=== PATIENT | female | born 1950 | race African-American/Black ===

== ENCOUNTER 2019-09-27 11:42 | Inpatient (IN) | payer MEDICARE, MEDICAID ==
[~2019-09-27] VITALS: Ht 167.6 cm; Wt 98.6 kg
[2019-09-27] MEDS ORDERED: cloNIDine HCL 0.1 MG TAB PO ONE (13:00)
[2019-09-27 13:04] LABS: Basophils # (auto) 0 10 ^3/uL (0-0.2); Eosinophils # (auto) 0 10 ^3/uL (0-0.8); Lymphocytes # (auto) 2.1 10 ^3/uL (0.4-5.4); Red Blood Cells 4.76 10^6/uL (4.0-5.20); Red Cell Distribution Width 15.2 % (11.8-14.3); White Blood Cell 6.8 10^3/uL (4.4-10.8)
[2019-09-27 13:05] LABS: Basophils % (auto) 0.7 % (0.0-2.0); Eosinophils % (auto) 0.5 % (0.0-7.0); Hematocrit 40.1 % (36.0-46.0); Hemoglobin 12.8 g/dL (12.2-16.2); Mean Corpuscular Hemoglobin 26.8 pg (28.0-32.0); Mean Corpuscular Hgb Conc. 31.8 g/dL (32.0-36.0); Mean Corpuscular Volume 84.3 fL (80.0-100.0); Monocytes # (auto) 0.3 10 ^3/uL (0-1.3); Monocytes % (auto) 4.9 % (0.0-12.0); Neutrophils # (auto) 4.2 10 ^3/uL (1.6-8.6); Neutrophils % (auto) 62.9 % (37.0-80.0); Platelet Count (auto) 193 10^3/uL (140-450)
[2019-09-27 13:20] LABS: Albumin 3.5 g/dL (3.4-5.0); Calcium 8.8 mg/dL (8.5-10.1); Potassium 4.1 mmol/L (3.5-5.1)
[2019-09-27 13:24] LABS: Partial Thromboplastin Time 22.5 sec (23.64-32.05)
[2019-09-27 13:25] LABS: BUN/Creatinine Ratio 17.9; Bilirubin, Total 0.2 mg/dL (0.2-1.0); Total Protein 7.6 g/dL (6.4-8.2)
[2019-09-27] MEDS ORDERED: DOCUSATE SOD 100 MG CAP PO PRN (13:45)
[2019-09-27] MEDS ORDERED: ONDANSETRON HCL 4 MG/2 ML VIAL IV PRN (13:45)
[2019-09-27] MEDS ORDERED: LORazepam 0.5 MG TAB PO PRN (13:45)
[2019-09-27] MEDS ORDERED: FUROSEMIDE 40 MG/4 ML VIAL IV ONE (13:45)
[2019-09-27] MEDS ORDERED: ALUM & MAG HYDROX-SIMETH LIQ(MAALOX) 30 ML PO PRN (13:45)
[2019-09-27] MEDS ORDERED: hydrALAZINE HCL 20 MG/ML VL IV PRN (13:45)
[2019-09-27] MEDS ORDERED: NITROGLYCERIN 0.4 MG SL TAB SL PRN (13:45)
[2019-09-27] MEDS ORDERED: DEXTROSE (50%) 50ML SYRG IV PRN (13:45)
[2019-09-27] MEDS ORDERED: METOPROLOL SUCCINATE XL 50 MG TAB PO ONE (13:45)
[2019-09-27] MEDS ORDERED: MORPHINE SULF INJ 2 MG/ML SYRINGE 1ML IV PRN (13:45)
[2019-09-27 13:56] LABS: Urine Bacteria FEW /hpf (None Seen); Urine Blood Negative /uL (Negative); Urine Specific Gravity 1.022 (1.001-1.035); Urine WBC 5 /hpf (0 - 5)
[2019-09-27 14:15] LABS: Cholesterol 219 mg/dL (< 200); HDL Cholesterol 54 mg/dL (40-59); LDL Cholesterol 132 mg/dL (< 100); Triglycerides 214 mg/dL (< 150)
[2019-09-27 14:21] LABS: Alcohol, Urine < 3.0 mg/dL (0-5); Amphetamine Screen, Urine NEGATIVE (NEGATIVE); Barbiturate Scree,Urine NEGATIVE (NEGATIVE); Benzodiazephine Screen, Urine POSITIVE (NEGATIVE); Cannabinoid Screen, Urine NEGATIVE (NEGATIVE); Cocaine Screen, Urine NEGATIVE (NEGATIVE); Opiate Scree,Urine NEGATIVE (NEGATIVE); Phencyclidine Screen, Urine NEGATIVE (NEGATIVE)
[2019-09-27] MEDS ORDERED: MORPHINE SULF INJ 2 MG/ML SYRINGE 1ML ONE (14:24)
[2019-09-27] MEDS: SODIUM CHLORIDE 0.9% 1,000 ML IV SCH (14:48)
[2019-09-27] MEDS: MORPHINE SULF INJ 2 MG/ML SYRINGE 1ML IV PRN (14:49)
[2019-09-27] MEDS ORDERED: HYDROmorphone HCL 2 MG/ML VL IV ONE (15:45)
--- NOTE | 2019-09-27 16:08 | NUR ---
Admit to Unit Patient admitted to unit. No signs of distress noted at this time, respirations are even and unlabored. Patient refuses to turn for repositioning at this time. Will continue to monitor.
--- NOTE | 2019-09-27 16:11 | NUR ---
Patient Round Patient is currently AOx4. VS are as follows: RR 22, SpO2 89%-patient sat up and encouraged to deep breathe, will reassess, HR 98, Temperature 97.9, BP 151/65. Will continue to monitor.
[2019-09-27 16:55] VITALS: BP 151/65
[2019-09-27 17:00] VITALS: BP 151/65
--- NOTE | 2019-09-27 17:00 | NUR ---
Patient Rounds Patient is currently resting with eyes closed, respirations even and unlabored. Patient is easy to arouse but is sleepy. Per patient, morphine makes her sleepy. Safety precautions are in place. Will continue to monitor.
[2019-09-27] MEDS: ACCU-CHEK COMFORT CURVE STRIP VI SCH ×2 (17:27→22:22)
[2019-09-27] MEDS: FUROSEMIDE 40 MG/4 ML VIAL IV SCH (17:27)
[2019-09-27] MEDS: InsuLIN REG 1unit/0.01ml Soln (100units/ml) SC SCH ×2 (17:57→22:25)
[2019-09-27] MEDS ORDERED: PNEUMOCOCCAL VACC POLYS 25 MCG/0.5 ML VIAL IM ONE (18:00)
[2019-09-27] MEDS ORDERED: AMLO5TAB15 PO (18:38)
[2019-09-27] MEDS ORDERED: ASPI325T4 PO (18:38)
[2019-09-27] MEDS ORDERED: ALPR1TAB7 PO (18:38)
[2019-09-27] MEDS ORDERED: ATOR20TA50 PO (18:38)
[2019-09-27] MEDS ORDERED: ALPR2TAB6 PO (18:38)
[2019-09-27] MEDS ORDERED: CLON0.1T PO (18:38)
[2019-09-27] MEDS ORDERED: ENAL2.5T PO (18:39)
[2019-09-27] MEDS ORDERED: SUMA25TA2 PO (18:41)
[2019-09-27] MEDS ORDERED: MILN50TA PO (18:41)
[2019-09-27] MEDS ORDERED: LEVEMIR SC (18:41)
[2019-09-27] MEDS ORDERED: FURO40TA4 PO (18:41)
[2019-09-27] MEDS ORDERED: LACO200T PO (18:42)
[2019-09-27] MEDS ORDERED: SERT-274 PO (18:44)
[2019-09-27] MEDS ORDERED: OXYBPOW10 XX (18:44)
--- NOTE | 2019-09-27 19:00 | NUR ---
Opening Shift Note Assumed care of patient, awake and alert. No S/S of distress/SOB, patient complains of pain in her right hip where she fell. Instructed on POC and to call for assist PRN, will continue to monitor for changes Q1hr and PRN. Patient in lowest possible position with call light within reach.
[2019-09-27 20:00] VITALS: BP 150/82
[2019-09-27 22:00] VITALS: BP 150/82
[2019-09-27] MEDS ORDERED: levETIRAcetam 500 MG TAB PO SCH (22:00)
[2019-09-27] MEDS: ATORVASTATIN 20 MG TAB PO SCH (22:22)
--- NOTE | 2019-09-27 23:00 | NUR ---
IV insertion IV access obtained, via clean sterile technique by inserting a 22 gauge catheter on her right forearm after 2 attempts. IV secured properly. No trauma to site. Patient tolerated well. Patient still has EJ IV in place. Moved fluids to her right forearm due to the patient keeps putting her neck to her right side, causing an occlusion in the IV. Will continue to monitor.
[2019-09-27] MEDS ORDERED: CEFTRIAXONE SODIUM 2 GM in D5W 5% 50 ML IV ONE (23:30)
[2019-09-28] MEDS: MORPHINE SULF INJ 2 MG/ML SYRINGE 1ML IV PRN ×4 (00:13→21:24)
[2019-09-28 05:00] VITALS: BP 179/93
[2019-09-28] MEDS: FUROSEMIDE 40 MG/4 ML VIAL IV SCH ×2 (05:46→18:00)
[2019-09-28] MEDS: SODIUM CHLORIDE 0.9% 1,000 ML IV SCH ×2 (05:46→23:05)
[2019-09-28] MEDS: ACCU-CHEK COMFORT CURVE STRIP VI SCH ×4 (06:33→22:02)
[2019-09-28] MEDS: INSULIN LISPRO (HUMAN) 100 UNITS/ML ML SC SCH ×3 (06:34→18:00)
[2019-09-28] MEDS: InsuLIN REG 1unit/0.01ml Soln (100units/ml) SC SCH ×4 (06:34→22:06)
[2019-09-28 06:57] LABS: Basophils # (auto) 0 10 ^3/uL (0-0.2); Basophils % (auto) 0.2 % (0.0-2.0); Eosinophils # (auto) 0 10 ^3/uL (0-0.8); Eosinophils % (auto) 0.1 % (0.0-7.0); Hematocrit 40.4 % (36.0-46.0); Hemoglobin 13.1 g/dL (12.2-16.2); Lymphocytes # (auto) 2.1 10 ^3/uL (0.4-5.4); Lymphocytes % (auto) 23.5 % (10.0-50.0); Mean Corpuscular Hemoglobin 27.3 pg (28.0-32.0); Mean Corpuscular Hgb Conc. 32.4 g/dL (32.0-36.0); Mean Corpuscular Volume 84.4 fL (80.0-100.0); Monocytes # (auto) 0.6 10 ^3/uL (0-1.3); Monocytes % (auto) 7.3 % (0.0-12.0); Neutrophils # (auto) 6.1 10 ^3/uL (1.6-8.6); Neutrophils % (auto) 68.9 % (37.0-80.0); Platelet Count (auto) 198 10^3/uL (140-450); Red Blood Cells 4.78 10^6/uL (4.0-5.20); Red Cell Distribution Width 15.6 % (11.8-14.3); White Blood Cell 8.8 10^3/uL (4.4-10.8)
[2019-09-28 07:00] LABS: INR 1.01 (0.9-1.15); Partial Thromboplastin Time 24.5 sec (23.64-32.05); Potassium 3.9 mmol/L (3.5-5.1)
[2019-09-28 07:07] LABS: Albumin 3.5 g/dL (3.4-5.0); BUN/Creatinine Ratio 18.4; Bilirubin, Total 0.4 mg/dL (0.2-1.0); Calcium 8.6 mg/dL (8.5-10.1); Magnesium 1.9 mg/dL (1.6-2.6); Phosphorus 3.1 mg/dL (2.5-4.90); Total Protein 7.7 g/dL (6.4-8.2)
--- NOTE | 2019-09-28 07:24 | NUR ---
Closing note Patient asleep, recently given morphine for back pain. patient in the lowest possible position with call light within reach. Patient had red tinge in velazquez bag this morning, complaining of back pain and pain in her right arm. Will endorse findings to day shift RNCynthia.
--- NOTE | 2019-09-28 07:30 | NUR ---
Opening Note Assumed patient care from NOC Patti GAVIRIA.
[2019-09-28 08:31] VITALS: BP 127/73
[2019-09-28] MEDS: HYDROcodone-ACET 5/325MG TAB PO PRN (09:19)
[2019-09-28] MEDS: ENOXAPARIN SOD 40 MG/0.4 ML SYRINGE SC SCH (09:38)
[2019-09-28] MEDS: cefTRIAXone 1GM/50ML D5W 50 ML IV SCH (09:38)
[2019-09-28] MEDS: SERTRALINE HCL 50 MG TAB PO SCH (09:39)
[2019-09-28] MEDS: ASPirin 81 mg TAB PO SCH (09:39)
[2019-09-28] MEDS: SUMAtriptan SUCCINATE 25 MG TAB PO SCH (09:40)
[2019-09-28] MEDS: LISINOPRIL 10 MG TAB PO SCH (09:41)
[2019-09-28] MEDS: METOPROLOL SUCCINATE XL 50 MG TAB PO SCH (09:41)
[2019-09-28] MEDS: OXYBUTYNIN CHL 5 MG TAB PO SCH ×2 (09:42→22:01)
[2019-09-28] MEDS ORDERED: LACOSAMIDE 50 MG TAB PO SCH (10:00)
[2019-09-28] MEDS: MILNACIPRAN 50 MG PO SCH ×2 (10:00→21:45)
--- NOTE | 2019-09-28 11:35 | NUR ---
at Bedside Dr. Calles at bedside discussing plan of care with patient.
[2019-09-28 12:44] VITALS: BP 155/74
--- NOTE | 2019-09-28 13:05 | NUR ---
at Bedside Dr. Yepez at bedside discussing plan of care with patient. New orders received: advance Vimpat to 250mg BID as prescribed for home use.
--- NOTE | 2019-09-28 14:50 | NUR ---
Cardio Consult Called in cardio consult to program professional log sawyer, Dr. Patel. Spoke with Dina.
--- NOTE | 2019-09-28 15:59 | NUR ---
Cardio Consult Per MD, patient clear for surgery from cardio standpoint. See provider notes.
--- NOTE | 2019-09-28 16:19 | NUR ---
Called MD Called Dr. Yepez regarding patient status. Patient is currently agitated and pulled out right EJ IV. Patient removed gown, tele box and pulled on catheter. notified and is aware. New orders received for ativan 0.5mg TIDPRN. Will follow through with new orders. Addendum: 09/28/19 at 1625 by MATTIE FELIX RN RN Irritation and bleed at catheter site reported.
[2019-09-28 16:21] VITALS: BP 122/55
[2019-09-28] MEDS: LORazepam 2MG/ML-1ML VIAL IV PRN (16:41)
--- NOTE | 2019-09-28 17:56 | NUR ---
New Room Patient moved to room 204. Patient currently agitated and moved closer to station for safety. aerologist is aware and stated she will notify warehouse stocker. Safety precautions are in place, will continue to monitor.
--- NOTE | 2019-09-28 19:00 | NUR ---
Opening Shift Note Assumed care of patient, patient awake, patient has periods of confusion and agitation. No S/S of distress/SOB. Patient complains of pain in her right hip due to fracture. Will continue to monitor and administer pain medications as needed. Instructed on POC and to call for assist PRN, will continue to monitor for changes Q1hr and PRN. Patient in the lowest possible position with call light within reach.
--- NOTE | 2019-09-28 19:30 | NUR ---
Closing Note Report given to NOC RNPatti, endorsed DV In House Covid testing for surgery on 09/29.
[2019-09-28 20:00] VITALS: BP 118/58
--- NOTE | 2019-09-28 20:00 | NUR ---
Sitter at bedside. Patient pulled out her right EJ IV earlier this afternoon. Patient has periods of confusion when she wakes up. Patient has tried to pull out her Padilla earlier this evening as well. Red fluid noted coming from the Padilla. Sitter at bedside to help patient not pull out her lines and keep her safe. Will continue to monitor.
--- NOTE | 2019-09-28 20:30 | NUR ---
Covid swab collected and walked to lab.
[2019-09-28 22:00] VITALS: BP 118/58
[2019-09-28] MEDS: ATORVASTATIN 20 MG TAB PO SCH (22:01)
[2019-09-28] MEDS: LACOSAMIDE 50 MG TAB PO SCH (22:02)
[2019-09-28] MEDS: INSULIN LANTUS (GLARGINE) 1 /0.01ml (100units/ml) SC SCH (22:07)
[2019-09-29] MEDS: LORazepam 2MG/ML-1ML VIAL IV PRN ×2 (00:32→14:55)
[2019-09-29 05:00] VITALS: BP 125/65
[2019-09-29] MEDS: FUROSEMIDE 40 MG/4 ML VIAL IV SCH ×2 (06:14→18:25)
[2019-09-29] MEDS: ACCU-CHEK COMFORT CURVE STRIP VI SCH ×4 (06:16→22:00)
[2019-09-29] MEDS: InsuLIN REG 1unit/0.01ml Soln (100units/ml) SC SCH ×4 (06:20→23:14)
[2019-09-29] MEDS: INSULIN LISPRO (HUMAN) 100 UNITS/ML ML SC SCH ×3 (06:20→18:24)
--- NOTE | 2019-09-29 06:52 | NUR ---
Closing shift. Patient is asleep, no complaints of pain or SOB. Patient in the lowest possible position with bed rails up x2 and call light within reach. Will endorse to day shift RN. Sitter at bedside.
--- NOTE | 2019-09-29 07:30 | NUR ---
RECEIVED REPORT FROM NIGHT NURSE. PATIENT RESTING IN BED, NO DISTRESS NOTED. WILL CONTINUE TO MONITOR.
[2019-09-29 09:00] VITALS: BP 115/65
[2019-09-29] MEDS: MILNACIPRAN 50 MG PO SCH ×2 (10:00→22:00)
[2019-09-29] MEDS: MORPHINE SULF INJ 2 MG/ML SYRINGE 1ML IV PRN ×2 (10:57→18:50)
[2019-09-29] MEDS: cefTRIAXone 1GM/50ML D5W 50 ML IV SCH (11:05)
[2019-09-29] MEDS: ENOXAPARIN SOD 40 MG/0.4 ML SYRINGE SC SCH (11:05)
[2019-09-29] MEDS: LACOSAMIDE 50 MG TAB PO SCH ×2 (11:06→23:05)
[2019-09-29] MEDS: SUMAtriptan SUCCINATE 25 MG TAB PO SCH (11:07)
[2019-09-29] MEDS: SERTRALINE HCL 50 MG TAB PO SCH (11:07)
[2019-09-29] MEDS: METOPROLOL SUCCINATE XL 50 MG TAB PO SCH (11:08)
[2019-09-29] MEDS: ASPirin 81 mg TAB PO SCH (11:08)
[2019-09-29] MEDS: OXYBUTYNIN CHL 5 MG TAB PO SCH ×2 (11:08→23:06)
[2019-09-29] MEDS: LISINOPRIL 10 MG TAB PO SCH (11:08)
[2019-09-29 13:00] VITALS: BP 107/61
[2019-09-29] MEDS: SODIUM CHLORIDE 0.9% 1,000 ML IV SCH (14:54)
[2019-09-29 18:08] VITALS: BP_SYST 115; BP_SYST 149; BP_DIAS 65; BP_DIAS 74
--- NOTE | 2019-09-29 19:34 | NUR ---
Opening Shift Note Assumed care of patient, awake and alert. No S/S of distress/SOB or pain. Sitter at bedside. Patient oriented to self and place. Instructed on POC and to call for assist PRN, will continue to monitor for changes Q1hr and PRN. Safety precautions maintained bed is in lowest position and locked, bed rails 2x. Call light and bedside table are within reach.
--- NOTE | 2019-09-29 21:34 | NUR ---
Elevated Temp Initiated cooling precautions, paged hospitalist, awaiting call back. At this time patient oriented to self and place. No s/s of distress or SOB noted. Will continue to monitor Q1 and PRN.
--- NOTE | 2019-09-29 21:45 | NUR ---
FABRIC COATING SUPERVISOR CALL FROM LEAD IN OPERATING ROOM STATES THAT DR CLAYTON WOULD LIKE FOR THE PATIENT TO HAVE ECHO PRIOR TO SURGERY, I SPOKE TO THE BARREL DEDENTING MACHINE OPERATOR ON THE FLOOR WHO INDICATES IT HAS NOT BEEN COMPLETED YET. REQUEST FROM OR TO NOTIFY DR NOLAN OF CHANGE IN SURGICAL TIME PENDING RESULTS OF A ECHO
[2019-09-29 22:00] VITALS: BP 96/47
--- NOTE | 2019-09-29 22:02 | NUR ---
SYSTEM MANAGER CALL PLACED TO DR NOLAN NOTIFIED HIM OF DR CLAYTON REQUEST FOR ECHO, ADVISED THAT SURGERY WOULD BE POSTPONED UNTIL ECHO DONE. POC IS TO PLACE CALL TO ECHO FIRST THING IN MORNING AND HAVE PATIENT DONE FIRST PENDING SURGERY.
--- NOTE | 2019-09-29 22:05 | NUR ---
Call back from hospitalist Received new orders, inputed will continue to monitor patient Q1 and PRN.
[2019-09-29] MEDS ORDERED: ACETAMINOPHEN 325 MG TAB PO PRN (22:45)
[2019-09-29] MEDS: ATORVASTATIN 20 MG TAB PO SCH (23:05)
[2019-09-29] MEDS: INSULIN LANTUS (GLARGINE) 1 /0.01ml (100units/ml) SC SCH (23:14)
[2019-09-30 06:00] VITALS: BP 103/46
[2019-09-30] MEDS: FUROSEMIDE 40 MG/4 ML VIAL IV SCH ×2 (06:00→17:57)
[2019-09-30] MEDS: INSULIN LISPRO (HUMAN) 100 UNITS/ML ML SC SCH ×3 (06:55→17:23)
[2019-09-30] MEDS: ACCU-CHEK COMFORT CURVE STRIP VI SCH ×4 (06:55→22:00)
[2019-09-30] MEDS: InsuLIN REG 1unit/0.01ml Soln (100units/ml) SC SCH ×4 (06:55→23:31)
--- NOTE | 2019-09-30 07:20 | NUR ---
End of Shift Note Endorsed care to Serena GAVIRIA. Informed nurse of pending echo before surgical procedure. At this time patient alert and responsive to name and touch. Sitter at bedside.
--- NOTE | 2019-09-30 07:30 | NUR ---
Opening Shift Note Assumed care of patient, alert and oriented x2. No S/S of distress/SOB or pain. Bed is low, locked with 2x side rails up. Call light is within reach. psychiatric attendant at bedside. Instructed on POC and to call for assist PRN, will continue to monitor for changes Q1hr and PRN.
--- NOTE | 2019-09-30 08:24 | NUR ---
Spoke with Dr. Marli MARTINEZ aware that Echo has not been done at this time. A stat order was placed and MD to be called when echo is done and read. MD also aware of consents for surgery not being signed. This nurse cannot get in contact with family as there is no active number in patients chart. Charge nurse also aware. Will continue to monitor.
[2019-09-30] MEDS: cefTRIAXone 1GM/50ML D5W 50 ML IV SCH (08:42)
--- NOTE | 2019-09-30 09:05 | NUR ---
Echo Dr. Patel aware of pending surgery due to anesthesiologist wanting a repeat echo. No new orders received at this time. Will relay information
--- NOTE | 2019-09-30 09:35 | NUR ---
Paging Dr. Jenkins To inform him that no new orders were received for repeat echocardiogram. Waiting for call back.
--- NOTE | 2019-09-30 09:47 | NUR ---
Consents Spoke with Dario Scruggs (caregiver) in and received verbal consent for patient to have surgery of R hip, anesthesia and a blood transfusion consent. Charge nurse Paige present and also spoke with patient. Will continue to monitor. Addendum: 09/30/19 at 1440 by Serena Seth RN RN CORRECTION: Charge nurse Paige spoke with caregiver Dario to witness telephone consent for surgery, anesthesia and blood transfusion.
[2019-09-30] MEDS: OXYBUTYNIN CHL 5 MG TAB PO SCH ×2 (10:00→23:01)
[2019-09-30] MEDS: MILNACIPRAN 50 MG PO SCH ×2 (10:00→21:47)
[2019-09-30] MEDS: ASPirin 81 mg TAB PO SCH (10:00)
[2019-09-30] MEDS: SUMAtriptan SUCCINATE 25 MG TAB PO SCH (10:00)
[2019-09-30] MEDS: SERTRALINE HCL 50 MG TAB PO SCH (10:00)
[2019-09-30] MEDS: LISINOPRIL 10 MG TAB PO SCH (10:00)
[2019-09-30] MEDS: LACOSAMIDE 50 MG TAB PO SCH ×2 (10:00→23:01)
[2019-09-30] MEDS: METOPROLOL SUCCINATE XL 50 MG TAB PO SCH (10:00)
--- NOTE | 2019-09-30 11:21 | NUR ---
Nutrition Assessment Notes please see attached link for complete assessment [employer] needs ABW 79 [id number] kcals (20-23 kcal/kgBW), Est Protein needs: 79-86 gms/day (1.0-1.1 gm/kgBW). Will continue to monitor and reassess prn. Addendum: 09/30/19 at [address] Amended: Links added.
[2019-09-30] MEDS ORDERED: SUCCINYLCHOLINE CHLORIDE 20 MG/ML 10ML VIAL IV ONE (11:51)
--- NOTE | 2019-09-30 12:00 | NUR ---
Off unit Patient off unit for scheduled surgery with Dr. Calles. IV patent and intact. No distress noted upon departure.
[2019-09-30] MEDS ORDERED: CLINDAMYCIN 900MG IV 50 ML IV ONE (12:10)
[2019-09-30] MEDS ORDERED: fentaNYL CITRATE 100 MCG/2 ML VL ONE (12:12)
[2019-09-30] MEDS ORDERED: MEPERIDINE HCL (50 MG/ML) 1 ML VIAL ONE (12:12)
[2019-09-30] MEDS ORDERED: MIDAZOLAM HCL 1MG/1ML-2 ML VIAL ONE (12:12)
[2019-09-30] MEDS ORDERED: DexAMETHasone SOD PHOS 10MG/1ML VIAL INJ ONE (12:26)
[2019-09-30] MEDS ORDERED: ETOMIDATE (2MG/ML) 20ML VIAL IV ONE (12:26)
[2019-09-30] MEDS ORDERED: BUPIVACAINE W/ EPINEPH 0.25% INJ 50ML MDV ONE (13:21)
[2019-09-30] MEDS ORDERED: BUPIVACAINE 0.25% INJ 50ML VIAL ONE (13:22)
[2019-09-30] MEDS ORDERED: hydrALAZINE HCL 20 MG/ML VL IV PRN (13:30)
[2019-09-30] MEDS ORDERED: LABETALOL HCL 5 MG/ML 4ML SYRINGE IV PRN (13:30)
[2019-09-30] MEDS ORDERED: ePHEDrine SULFATE 50 MG/ML AMP IV PRN (13:30)
[2019-09-30] MEDS ORDERED: ONDANSETRON HCL 4 MG/2 ML VIAL IV PRN (13:30)
[2019-09-30] MEDS ORDERED: ACCU-CHEK COMFORT CURVE STRIP VI ONE (13:30)
[2019-09-30] MEDS ORDERED: MIDAZOLAM HCL 1MG/1ML-2 ML VIAL IV PRN (13:30)
[2019-09-30] MEDS ORDERED: MORPHINE SULFATE 4 MG/ML SYR/VIAL IV PRN (13:30)
[2019-09-30] MEDS: HYDROmorphone HCL 2 MG/ML VL IV PRN ×2 (14:14→14:24)
--- NOTE | 2019-09-30 15:00 | NUR ---
Back on unit Patient s/p ORIF of right hip with Dr. Calles. Patient has 2 dressings to right lateral thigh and both are C/D/I. No distress noted upon return. Bed is low, locked with rails up. Call light is within reach. creche attendant at bedside. Will continue to monitor.
[2019-09-30] MEDS: LACTATED RINGER'S 1,000 ML IV SCH ×2 (15:37→23:39)
--- NOTE | 2019-09-30 16:39 | NUR ---
Update Spoke with Dario (Heat Reader) and updated him on patients current status and that patient is S/P ORIF. All questions answered. Per Dario he will update patient's family.
[2019-09-30] MEDS: CLINDAMYCIN 600MG IV 50 ML IV SCH (17:57)
--- NOTE | 2019-09-30 19:20 | NUR ---
Opening Shift Note Assumed care of patient, awake and alert. Sitter at bedside. No S/S of distress/SOB or pain. Instructed on POC and to call for assist PRN, will continue to monitor for changes Q1hr and PRN. Safety and seizure precautions in place, bed is in lowest position and locked, bed rails 2x. Call light and bedside table are within reach.
[2019-09-30 21:00] VITALS: BP 132/63
[2019-09-30] MEDS: ATORVASTATIN 20 MG TAB PO SCH (22:00)
[2019-09-30] MEDS: LORazepam 2MG/ML-1ML VIAL IV PRN (23:03)
[2019-09-30] MEDS: INSULIN LANTUS (GLARGINE) 1 /0.01ml (100units/ml) SC SCH (23:31)
[2019-10-01 05:40] VITALS: BP 130/68
[2019-10-01] MEDS: CLINDAMYCIN 600MG IV 50 ML IV SCH ×2 (06:00)
[2019-10-01] MEDS: FUROSEMIDE 40 MG/4 ML VIAL IV SCH ×2 (06:01→18:00)
[2019-10-01] MEDS: INSULIN LISPRO (HUMAN) 100 UNITS/ML ML SC SCH ×3 (06:29→17:32)
[2019-10-01] MEDS: InsuLIN REG 1unit/0.01ml Soln (100units/ml) SC SCH ×4 (06:29→21:59)
--- NOTE | 2019-10-01 06:35 | NUR ---
DC'akila Padilla per MD orders. Patient tolerated well. Will continue to monitor patient Q1 and PRN.
[2019-10-01 06:46] LABS: Hematocrit 32.9 % (36.0-46.0); Hemoglobin 10.8 g/dL (12.2-16.2)
[2019-10-01] MEDS: ACCU-CHEK COMFORT CURVE STRIP VI SCH ×4 (07:00→22:15)
[2019-10-01 07:03] LABS: Albumin 2.7 g/dL (3.4-5.0); Calcium 8.5 mg/dL (8.5-10.1); Potassium 3.4 mmol/L (3.5-5.1)
[2019-10-01 07:06] LABS: BUN/Creatinine Ratio 33.3; Bilirubin, Total 0.4 mg/dL (0.2-1.0); Total Protein 6.9 g/dL (6.4-8.2)
--- NOTE | 2019-10-01 07:35 | NUR ---
Opening shift note Assumed care of patient from NOC RN. Patient is AOx4, no s/s of distress noted at this time. Updated patient on plan of care and patient verbalized understanding. Bed is in lowest locked position, call light is within reach, and process safety engineering technologist is at bedside. I will continue to monitor q1hr and prn.
--- NOTE | 2019-10-01 08:55 | NUR ---
Physician rounding Dr. Yepez at bedside. Updated him on patient status. New orders received.
[2019-10-01] MEDS: LACTATED RINGER'S 1,000 ML IV SCH ×2 (09:39→19:39)
[2019-10-01] MEDS: SUMAtriptan SUCCINATE 25 MG TAB PO SCH (10:00)
[2019-10-01] MEDS: LISINOPRIL 10 MG TAB PO SCH (10:00)
[2019-10-01] MEDS: MILNACIPRAN 50 MG PO SCH ×2 (10:00→21:37)
[2019-10-01] MEDS: cefTRIAXone 1GM/50ML D5W 50 ML IV SCH (10:47)
[2019-10-01] MEDS: LACOSAMIDE 50 MG TAB PO SCH ×2 (10:48→21:30)
[2019-10-01] MEDS: ENOXAPARIN SOD 40 MG/0.4 ML SYRINGE SC SCH (10:48)
[2019-10-01] MEDS: ASPirin 81 mg TAB PO SCH (10:48)
[2019-10-01] MEDS: SERTRALINE HCL 50 MG TAB PO SCH (10:48)
[2019-10-01] MEDS: OXYBUTYNIN CHL 5 MG TAB PO SCH ×2 (10:48→21:30)
[2019-10-01] MEDS: MORPHINE SULF INJ 2 MG/ML SYRINGE 1ML IV PRN ×2 (10:49→20:51)
[2019-10-01] MEDS: METOPROLOL SUCCINATE XL 50 MG TAB PO SCH (10:50)
--- NOTE | 2019-10-01 19:15 | NUR ---
End of shift note endorsed care to NOC KHADRA Mejias. No signs and symptoms of distress noted.
[2019-10-01] MEDS: HYDROcodone-ACET 5/325MG TAB PO PRN (21:30)
[2019-10-01] MEDS: ATORVASTATIN 20 MG TAB PO SCH (21:37)
[2019-10-01] MEDS: INSULIN LANTUS (GLARGINE) 1 /0.01ml (100units/ml) SC SCH (21:59)
[2019-10-01 22:00] VITALS: BP 116/60
[2019-10-02] MEDS: LORazepam 2MG/ML-1ML VIAL IV PRN (02:05)
[2019-10-02] MEDS: LACTATED RINGER'S 1,000 ML IV SCH (03:17)
[2019-10-02 05:00] VITALS: BP 136/59
[2019-10-02] MEDS: ACCU-CHEK COMFORT CURVE STRIP VI SCH ×2 (06:12→11:30)
[2019-10-02 06:16] LABS: Hematocrit 31.3 % (36.0-46.0); Hemoglobin 10.2 g/dL (12.2-16.2)
[2019-10-02] MEDS: InsuLIN REG 1unit/0.01ml Soln (100units/ml) SC SCH ×2 (06:18→13:19)
[2019-10-02] MEDS: INSULIN LISPRO (HUMAN) 100 UNITS/ML ML SC SCH ×2 (06:36→13:19)
[2019-10-02] MEDS: FUROSEMIDE 40 MG/4 ML VIAL IV SCH (06:37)
--- NOTE | 2019-10-02 07:25 | NUR ---
Received patient from [facility] shift rn, awake, alert and oriented, requesting pain medication for a 7/10 pain, denies SOB. Plan of care discussed, periods of forgetfulness observed. [place]en[place] on right hip noted, site is intact, no drainage noted. Call light and phone within reach. Will continue to monitor q1hr and prn. Sitter at bedside.
[2019-10-02 08:00] VITALS: BP 115/59
--- NOTE | 2019-10-02 08:30 | NUR ---
Assessment Patient is a 69-year-old female who is alert and oriented. Prior to admission patient lived home with family and function independently. Patient informed me she can care for her own ADLs. Patient informed me she has a walker, walker with seat, and shower chair. Per patient she would like to be placed at a rehab due to her hip surgery. Advised patient there is a social service consult for SNF placement for rehab due to hip fracture. Information and choice letter was given to patient. Per patient she would like [facility] as first choice, [facility] as second choice and [facility] as third. Informed patient clinical information will be faxed to first choice. Informed patient she has a right to participate in all discharge planning. Patient verbalized understanding and agreed to discharge plan home. Per Janeth with [facility] patient has been accepted will provide room and accepting doctor upon d/c day. Addendum: 10/02/19 at 1057 by BRADLEY BOLAÑOS Amended: Links added.
[2019-10-02] MEDS: cefTRIAXone 1GM/50ML D5W 50 ML IV SCH (08:34)
[2019-10-02] MEDS: MORPHINE SULF INJ 2 MG/ML SYRINGE 1ML IV PRN (08:36)
[2019-10-02 09:00] VITALS: BP 115/59
--- NOTE | 2019-10-02 09:48 | NUR ---
spoke to socially responsible investment adviserCarolynn about patient's discharge planning to SNF. Per soc. worker, she will call and make arrangements.
[2019-10-02] MEDS: MILNACIPRAN 50 MG PO SCH (10:00)
--- NOTE | 2019-10-02 10:41 | NUR ---
D/C Planning Faxed updated order to [facility] regarding wound care and physical therapy. Per Janeth with [facility] patient has been accepted to room 16 bed C accepting , Dr. Zaldivar. Transportation has been arranged for 14:15 via [employer] with [employer] transportation . Informed KHADRA Sanchez.
[2019-10-02] MEDS: ASPirin 81 mg TAB PO SCH (11:05)
[2019-10-02] MEDS: SERTRALINE HCL 50 MG TAB PO SCH (11:06)
[2019-10-02] MEDS: OXYBUTYNIN CHL 5 MG TAB PO SCH (11:06)
[2019-10-02] MEDS: SUMAtriptan SUCCINATE 25 MG TAB PO SCH (11:07)
[2019-10-02] MEDS: METOPROLOL SUCCINATE XL 50 MG TAB PO SCH (11:10)
[2019-10-02] MEDS: LISINOPRIL 10 MG TAB PO SCH (11:11)
[2019-10-02] MEDS: ENOXAPARIN SOD 40 MG/0.4 ML SYRINGE SC SCH (11:12)
[2019-10-02] MEDS: LACOSAMIDE 50 MG TAB PO SCH (13:11)
--- NOTE | 2019-10-02 14:33 | NUR ---
patient discharged at this time and transported by [employer] transportation. Report given to KHADRA Mcclain at [facility] [phone], receiving MD is Dr. Zaldivar. Patient provided with all discharge summary and follow up instruction. Patient verbalized understanding. IV access discontinued and tele box returned to ICU. Patient refused PNA vaccine on discharge.
== END 2019-10-02 14:33 | DRG 480 ==
LOC: ER 11:42 → EDBD 11:42 → TELE 11:43 → TELE-CENTR 16:13
PROVIDERS: ADMIT Hospitalist; ATTEND Family Medicine
PROC: 8E0Y3EZ Fluorescence Guided Procedure of Lower Extremity, Percutaneous Approach (ICD-10-PCS; 2019-09-30)
PROC: 0QS634Z Reposition Right Upper Femur with Internal Fixation Device, Percutaneous Approach (ICD-10-PCS; principal; 2019-09-30 12:38)
DX: S72.141A Displaced intertrochanteric fracture of right femur, initial encounter for closed fracture (principal); I50.23 Acute on chronic systolic (congestive) heart failure; J96.01 Acute respiratory failure with hypoxia; N39.0 Urinary tract infection, site not specified; W18.31XA Fall on same level due to stepping on an object, initial encounter; Y93.01 Activity, walking, marching and hiking; F32.9 Major depressive disorder, single episode, unspecified; I11.0 Hypertensive heart disease with heart failure; G43.909 Migraine, unspecified, not intractable, without status migrainosus; E11.65 Type 2 diabetes mellitus with hyperglycemia; G89.29 Other chronic pain; M79.18 Myalgia, other site; E78.00 Pure hypercholesterolemia, unspecified; Y92.017 Garden or yard in single-family (private) house as the place of occurrence of the external cause; Z90.49 Acquired absence of other specified parts of digestive tract; Z79.899 Other long term (current) drug therapy; Z79.4 Long term (current) use of insulin; Z79.82 Long term (current) use of aspirin; Z03.818 Encounter for observation for suspected exposure to other biological agents ruled out; G40.909 Epilepsy, unspecified, not intractable, without status epilepticus; E78.5 Hyperlipidemia, unspecified
CPT/HCPCS: 36415; 70450; 71045; 72192; 73501; 73502; 76000; 80053; 80061; 80307; 81001; 82962; 83036; 83735; 84100; 84484; 85014; 85018; 85025; 85610; 85730; 86850; 86900; 86901; 87086; 93005; 96361; 96374; 96375; 97110; 97116; 97163; 97530; A4565; C1713; G0378; J0330; J0696; J1100; J1815; J2250; J2405; J3490; J7060